=== PATIENT | male | born 1975 | race Caucasian/White ===

== ENCOUNTER 2017-05-30 22:19 | Emergency (ER) | payer BC ==
[2017-05-30] MEDS ORDERED: Ketorolac 60 MG/2 ML SDV IM ONE (22:24)
--- NOTE | 2017-05-30 22:27 | EDM.PDOC ---
ED HPI GENERAL MEDICAL PROBLEM - General Stated Complaint: CHEST PAINS Time Seen by Provider: 05/30/17 22:22 Source of Information: Reports: Patient, RN Notes Reviewed History Limitations: Reports: No Limitations - History of Present Illness INITIAL COMMENTS - FREE TEXT/NARRATIVE: 42-year-old male presents emergency department day complaint of chest pain he states it started about 4 hours prior it is constant in nature he did have something similar in the past about 2 years ago which she underwent a stress test which she states was negative this was done in [facility]. He denies any nausea or vomiting no diaphoresis no shortness of breath he is very specific point tenderness at the T5 region between the sternum and rib Chest Pain Score (Numeric/FACES): 1 - Related Data Allergies Allergy/AdvReac Type Severity Reaction Status Date / Time No Known Allergies Allergy Verified 05/30/17 22:29 Home Meds: Home Meds NK [No Known Home Meds] 05/30/17 [History] Past Medical History - Past Health History Medical/Surgical History: Denies Medical/Surgical History Social & Family History - Tobacco Use Smoking Status *Q: Never Smoker ED ROS GENERAL - Review of Systems Review Of Systems: See Below Constitutional: Reports: No Symptoms HEENT: Reports: No Symptoms Respiratory: Reports: No Symptoms Cardiovascular: Reports: Chest Pain GI/Abdominal: Reports: No Symptoms : Reports: No Symptoms Musculoskeletal: Reports: No Symptoms Skin: Reports: No Symptoms ED EXAM, GENERAL - Physical Exam Exam: See Below Free Text/Narrative:: General: Male, not in any distress, alert and oriented x3 HEENT: head is atraumatic normocephalic, eyes pupils equal round reactive to light, sclera clear no conjunctivitis appreciated. Ears tympanic membranes clear and salcido landmarks and light reflex are present bilaterally canals are clear. Nose no septal deviation, nares are clear, no blood present. Mouth mucosa is moist and pink no erythema or exudate noted in soft palate, tongue is midline uvula is midline, dentition is intact. Neck: Supple no thyromegaly no tracheal deviation. Nodes: Cervical nodes subclavicular nodes nontender no palpable lymphadenopathy noted. Lungs: clear to auscultation bilaterally with symmetrical respirations, no adventitious noise appreciated. CV: Regular rate and rhythm S1 and S2 appreciated no murmurs rubs or gallops noted. Chest pinpoint tenderness at T5 region along the border of the sternum and rib on the left side Abdomen: Soft, nontender, no palpable masses or organomegaly appreciated, no distention no guarding bowel sounds are present, . Neuro: Cranial nerves II through XII grossly intact Skin: Warm and dry, intact Extremities: No lower extremity edema appreciated, Course - Vital Signs Last Recorded V/S: Last Vital Signs Temp 97.7 F 05/30/17 22:25 Pulse 55 L 05/30/17 22:25 Resp 20 05/30/17 22:25 BP 144/82 H 05/30/17 22:25 Pulse Ox 98 05/30/17 22:25 - Orders/Labs/Meds Orders: Active Orders 24 hr Category Date Time Status Cardiac Monitoring [RC] .As Directed Care 05/30/17 22:23 Active EKG Documentation Completion [RC] ASDIRECTED Care 05/30/17 22:24 Active Chest 2V [CR] Stat Exams 05/30/17 22:24 Taken EKG 12 Lead [EK] Stat Ther 05/30/17 22:24 Ordered Labs: Laboratory Tests 05/30/17 05/30/17 05/30/17 Range/Units 22:34 22:34 22:34 WBC 8.9 (4.5-11.0) K/uL RBC 4.81 (4.30-5.90) M/uL Hgb 14.5 (12.0-15.0) g/dL Hct 41.1 (40.0-54.0) % MCV 85 (80-98) fL MCH 30 (27-31) pg MCHC 35 (32-36) % Plt Count 254 (150-400) K/uL Neut % (Auto) 72 H (36-66) % Lymph % (Auto) 17 L (24-44) % [place] % (Auto) 10 H (2-6) % Eos % (Auto) 1 L (2-4) % Baso % (Auto) 0 (0-1) % D-Dimer, Quantitative < 100 (0.0-400.0) ng/mL Sodium 140 (140-148) mmol/L Potassium 3.8 (3.6-5.2) mmol/L Chloride 104 (100-108) mmol/L Carbon Dioxide 28 (21-32) mmol/L Anion Gap 8.5 (5.0-14.0) mmol/L BUN 14 (7-18) mg/dL Creatinine 1.1 (0.8-1.3) mg/dL Est Cr Clr Drug Dosing 85.22 mL/min Estimated GFR (MDRD) > 60 (>60) Glucose 132 H (74-106) mg/dL Calcium 8.9 (8.5-10.1) mg/dL Total Bilirubin 1.1 H (0.2-1.0) mg/dL AST 20 (15-37) U/L ALT 24 (12-78) U/L Alkaline Phosphatase 78 (46-116) U/L CK-MB (CK-2) 1.2 (0-3.6) mg/mL Troponin I < 0.017 (0.000-0.056) ng/mL Total Protein 7.3 (6.4-8.2) g/dL Albumin 4.1 (3.4-5.0) g/dL Globulin 3.2 (2.3-3.5) g/dL Albumin/Globulin Ratio 1.3 (1.2-2.2) Meds: Medications Discontinued Medications Generic Name Dose Route Start Last Admin Trade Name Freq PRN Reason Stop Dose Admin Ketorolac Tromethamine 60 mg 05/30/17 22:24 05/30/17 22:38 Toradol IM 05/30/17 22:25 60 mg ONETIME ONE Administration Departure - Departure Time of Disposition: 23:27 Disposition: Home, Self-Care 01 Condition: Good Clinical Impression: Acute costochondritis Additional Instructions: Recommend using nonsteroidal anti-inflammatories such as Motrin naproxen or Aleve for the next 4-5 days, Please followup with your primary care provider in 3-5 days if not better, please call return to the emergency department with worsening of symptoms. - My Orders Last 24 Hours: My Active Orders 05/30/17 22:23 Cardiac Monitoring [RC] .As Directed 05/30/17 22:24 EKG Documentation Completion [RC] ASDIRECTED Chest 2V [CR] Stat EKG 12 Lead [EK] Stat - Assessment/Plan Last 24 Hours: My Active Orders 05/30/17 22:23 Cardiac Monitoring [RC] .As Directed 05/30/17 22:24 EKG Documentation Completion [RC] ASDIRECTED Chest 2V [CR] Stat EKG 12 Lead [EK] Stat Plan: Assessment Acuity = acute Site and laterality = costochondritis Etiology = unclear etiology Manifestations = chest pain Location of injury = Home Lab values = CBC, CMP, troponin, d-dimer all negative EKG demonstrates sinus rhythm no ST changes or depressions chest x-ray I did review films myself I cannot appreciate any acute process, the official read from radiology is pending Plan I did review lab EKG and chest x-ray results with him he had good relief from the Toradol plan to continue nonsteroidal anti-inflammatories follow-up with primary care in 3-5 days if no improvement Patient was in agreement with the plan all questions were answered, they were instructed to return to the emergency department or call for worsening symptoms. This note was dictated using [employer] voice recognition software please call with any questions.
[2017-05-30 23:37] VITALS: BP 127/78
--- NOTE | 2017-06-02 10:50 | CR ---
Chest 2V INDICATION: Chest Pain FINDINGS: Negative chest.
== END 2017-05-30 23:38 | disposition home or self-care (01) ==
LOC: JP.ED 22:19
DX: M94.0 Chondrocostal junction syndrome [Tietze] (principal)
CPT/HCPCS: 36415; 71020; 80053; 82553; 84484; 85025; 85379; 93005; 96372; 99285; J1885